=== PATIENT | female | born 1960 | race Caucasian/White ===

== ENCOUNTER 2017-10-13 05:25 | Day surgery (SDC) | payer OTHER ==
[2017-10-13] MEDS ORDERED: ULTRACET PO (11:55)
[2017-10-13] MEDS ORDERED: MACROBID 100 M100 MG PO (11:56)
== END 2017-10-13 14:10 | disposition home or self-care (01) ==
LOC: CIR.AMB 05:25
DX: N39.3 Stress incontinence (female) (male) (principal)
CPT/HCPCS: 57288; C1771